=== PATIENT | male | born 1990 | race Two or more races ===

== ENCOUNTER 2020-04-05 18:45 | Emergency (ER) | payer OTHER ==
[~2020-04-05] VITALS: Ht 175.3 cm; Wt 62.7 kg
[2020-04-05 18:48] VITALS: BP 122/53
== END 2020-04-05 21:40 | disposition left against medical advice (07) ==
LOC: EMS 18:52
DX: R69 Illness, unspecified (principal); Z53.21 Procedure and treatment not carried out due to patient leaving prior to being seen by health care provider